=== PATIENT | male | born 1940 | race Caucasian/White ===

== ENCOUNTER 2017-10-21 17:26 | Emergency (ER) | payer OTHER ==
[~2017-10-21] VITALS: Ht 182.9 cm; Wt 141.3 kg
[~2017-10-21 17:26] MED LIST: ALLOPURINOL300 MG PO; AVODART0.5 MG PO; BETIMOL 0.100 DROP/5 BOTH EYES; CINNAMON BARK500 MG PO; COLCHICINE0.6 MG PO; COUMADIN,JANTOVE2 MG PO; FISH OIL 1,0001 EAC7 PO; FLOMAX0.4 MG PO; FUROSEMIDE20 MG PO; GARLIC OIL1000 MG PO; GLIPIZIDE5 MG PO; HYDROCHLOROTHIA50 MG PO; KLOR-CON20 MEQ PO; LISINOPRIL40 MG PO; LOPRESSOR100 M1 PO; ULTRAM50 MG PO; VITAMIN C1000 MG PO; XALATAN2.5 ML BOTH EYES
[2017-10-21 18:37] LABS: BASOPHIL (%) 0.3 % (0-1); BASOPHIL COUNT 0.1 K/uL (0-0.1); EOSINOPHIL (%) 0.3 % (0-5); EOSINOPHIL COUNT 0.1 K/uL (0-0.3); HEMATOCRIT 44.4 % (38.0-50.0); HEMOGLOBIN 14.4 G/DL (12.5-16.6); IMMATURE GRANULOCYTE (%) 0.7 % (0.0-0.7); LYMPHOCYTE (%) 1.9 % (15-42); LYMPHOCYTE COUNT 0.3 K/uL (1.0-2.8); MCH 28.7 PG (29.0-34.0); MCHC 32.4 G/DL (30.0-36.0); MCV 88.4 FL (86-99); MONOCYTE (%) 4.9 % (3-12); MONOCYTE COUNT 0.9 K/uL (0-0.8); NEUTROPHIL (%) 91.9 % (45-76); NEUTROPHIL COUNT 16.4 K/uL (1.8-6.4); PLATELET COUNT 166 K/uL (156-360); RBC DIS.WIDTH-CV 14.7 % (11.8-14.6); RED BLOOD COUNT 5.02 M/uL (4.00-5.50); WHITE BLOOD COUNT 17.8 K/uL (4.1-10.2)
[2017-10-21 18:45] LABS: CHLORIDE 107 mEq/L (99-109); POTASSIUM 3.8 mEq/L (3.7-5.4); SODIUM 142 mEq/L (136-147)
[2017-10-21 18:46] LABS: GLUCOSE 126 mg/dL (70-99)
[2017-10-21 18:50] LABS: CREATININE 1.2 mg/dL (0.6-1.3); GFR ESTIMATE (CALCULATED) > 59 mL/min/ (58.99-99999)
[2017-10-21 18:51] LABS: UREA NITROGEN (BUN) 16 mg/dL (9-23)
[2017-10-21 21:12] LABS: APPEARANCE CLEAR ((CLEAR)); BILIRUBIN NEGATIVE; BLOOD NEGATIVE; COLOR AMBER ((YELLOW)); GLUCOSE (STRIP) NEGATIVE; KETONES NEGATIVE; LEUKOCYTES NEGATIVE; NITRITE NEGATIVE; PROTEIN (STRIP) 30; SPECIFIC GRAVITY 1.023 (1.000-1.030); UCUL ADDED? NO; UROBILINOGEN 0.2 MG/DL (0.2-1.0)
[2017-10-21 21:32] VITALS: BP 171/77
[2017-10-22] MEDS ORDERED: XARELTO20 MG PO (19:49)
[2017-10-22] MEDS ORDERED: LIPITOR40 MG PO (19:50)
[2017-10-22] MEDS ORDERED: K-DUR20 MEQ PO (19:51)
[2017-10-22] MEDS ORDERED: NORVASC5 MG PO (19:58)
[2017-10-22] MEDS ORDERED: PROSCAR5 MG PO (19:59)
== END 2017-10-21 21:34 | disposition home or self-care (01) ==
LOC: EME 17:26
DX: B34.9 Viral infection, unspecified (principal); D72.829 Elevated white blood cell count, unspecified; J81.1 Chronic pulmonary edema; E11.9 Type 2 diabetes mellitus without complications; I10 Essential (primary) hypertension; K21.9 Gastro-esophageal reflux disease without esophagitis; E78.5 Hyperlipidemia, unspecified; M10.9 Gout, unspecified; F17.200 Nicotine dependence, unspecified, uncomplicated; Z79.01 Long term (current) use of anticoagulants; Z86.718 Personal history of other venous thrombosis and embolism; Z87.442 Personal history of urinary calculi; Z90.49 Acquired absence of other specified parts of digestive tract; Z95.828 Presence of other vascular implants and grafts; Z96.652 Presence of left artificial knee joint; Z88.5 Allergy status to narcotic agent
CPT/HCPCS: 71046; 71250; 80048; 81003; 82948; 83605; 85025; 87040; 87077; 87186; 87502; 87801; 99281; 99283

== ENCOUNTER 2017-10-22 17:13 | Inpatient (IN) | payer OTHER ==
[~2017-10-22] VITALS: Ht 182.9 cm; Wt 142.0 kg
[2017-10-22 17:58] LABS: HEMATOCRIT 42.4 % (38.0-50.0); HEMOGLOBIN 13.8 G/DL (12.5-16.6); MCH 28.7 PG (29.0-34.0); MCHC 32.5 G/DL (30.0-36.0); MCV 88.1 FL (86-99); PLATELET COUNT 153 K/uL (156-360); RBC DIS.WIDTH-SD 48.4 % (39-53); RED BLOOD COUNT 4.81 M/uL (4.00-5.50); WHITE BLOOD COUNT 21.5 K/uL (4.1-10.2)
[2017-10-22 18:09] LABS: CHLORIDE 106 mEq/L (99-109); SODIUM 140 mEq/L (136-147)
[2017-10-22 18:11] LABS: GLUCOSE 123 mg/dL (70-99); TOTAL PROTEIN 6.9 g/dL (6.4-8.3)
[2017-10-22 18:13] LABS: TOTAL BILIRUBIN 1.7 mg/dL (0.0-1.0)
[2017-10-22 18:14] LABS: ALKALINE PHOSPHATASE 92 IU/L (3-129)
[2017-10-22 18:15] LABS: CREATININE 1.5 mg/dL (0.6-1.3); GFR ESTIMATE (CALCULATED) 48 mL/min/ (58.99-99999)
[2017-10-22 18:16] LABS: AST (GOT) 31 IU/L (2-34); UREA NITROGEN (BUN) 26 mg/dL (9-23)
[2017-10-22 18:18] LABS: ALT (GPT) 31 IU/L (3-49); LIPASE 7 U/L (1.0-51.0)
[2017-10-22] MEDS ORDERED: XARELTO20 MG PO (19:49)
[2017-10-22] MEDS ORDERED: LIPITOR40 MG PO (19:50)
[2017-10-22] MEDS ORDERED: K-DUR20 MEQ PO (19:51)
[2017-10-22] MEDS ORDERED: NORVASC5 MG PO (19:58)
[2017-10-22] MEDS ORDERED: PROSCAR5 MG PO (19:59)
[2017-10-22 23:14] VITALS: BP 139/71
[2017-10-23 03:59] VITALS: BP 133/69
[2017-10-23 06:16] LABS: HEMATOCRIT 37.2 % (38.0-50.0); HEMOGLOBIN 11.9 G/DL (12.5-16.6); MCV 87.5 FL (86-99); PLATELET COUNT 132 K/uL (156-360); RBC DIS.WIDTH-CV 15.2 % (11.8-14.6); RBC DIS.WIDTH-SD 48.8 % (39-53); RED BLOOD COUNT 4.25 M/uL (4.00-5.50); WHITE BLOOD COUNT 16.5 K/uL (4.1-10.2)
[2017-10-23 06:38] LABS: CHLORIDE 108 MEQ/L (99-109); CREATININE 1.3 MG/DL (0.6-1.3); GFR ESTIMATE (CALCULATED) 57 mL/min/ (58.99-99999); GLUCOSE 131 mg/dL (70-99); POTASSIUM 3.6 MEQ/L (3.7-5.4); SODIUM 139 MEQ/L (136-147); UREA NITROGEN (BUN) 26 mg/dL (9-23)
[2017-10-23 07:26] VITALS: BP 138/63
[2017-10-23 12:13] VITALS: BP 122/67
[2017-10-23 17:07] VITALS: BP 169/85
[2017-10-23 20:20] VITALS: BP 124/69
[2017-10-23 23:55] VITALS: BP 142/65
[2017-10-24 04:30] VITALS: BP 138/76
[2017-10-24 06:49] LABS: HEMATOCRIT 36.6 % (38.0-50.0); HEMOGLOBIN 11.7 G/DL (12.5-16.6); MCH 27.8 PG (29.0-34.0); MCV 86.9 FL (86-99); PLATELET COUNT 136 K/uL (156-360); RBC DIS.WIDTH-SD 47.6 % (39-53); RED BLOOD COUNT 4.21 M/uL (4.00-5.50); WHITE BLOOD COUNT 14.3 K/uL (4.1-10.2)
[2017-10-24 07:12] LABS: C-REACTIVE PROTEIN 174.1 MG/L (0-10); CHLORIDE 107 MEQ/L (99-109); CREATININE 1.3 MG/DL (0.6-1.3); GFR ESTIMATE (CALCULATED) 57 mL/min/ (58.99-99999); GLUCOSE 134 mg/dL (70-99); POTASSIUM 3.5 MEQ/L (3.7-5.4); SODIUM 139 MEQ/L (136-147); UREA NITROGEN (BUN) 28 mg/dL (9-23)
[2017-10-24 07:27] VITALS: BP 137/70
[2017-10-24 07:46] LABS: ERTH.SED.RATE 51 MM/HR (0-20)
[2017-10-24 12:06] VITALS: BP 145/73
[2017-10-24 14:58] VITALS: BP 149/70
[2017-10-24 19:36] VITALS: BP 125/59
[2017-10-24 23:35] VITALS: BP 145/77
[2017-10-25 04:06] VITALS: BP 144/67
[2017-10-25 06:30] LABS: HEMATOCRIT 36.5 % (38.0-50.0); HEMOGLOBIN 11.7 G/DL (12.5-16.6); MCH 27.9 PG (29.0-34.0); MCHC 32.1 G/DL (30.0-36.0); MCV 86.9 FL (86-99); PLATELET COUNT 140 K/uL (156-360); RBC DIS.WIDTH-CV 14.9 % (11.8-14.6); RBC DIS.WIDTH-SD 47.7 % (39-53); WHITE BLOOD COUNT 12.8 K/uL (4.1-10.2)
[2017-10-25 06:58] LABS: CHLORIDE 105 MEQ/L (99-109); CREATININE 1.1 MG/DL (0.6-1.3); GFR ESTIMATE (CALCULATED) > 59 mL/min/ (58.99-99999); POTASSIUM 3.7 MEQ/L (3.7-5.4); SODIUM 142 MEQ/L (136-147); UREA NITROGEN (BUN) 24 mg/dL (9-23)
[2017-10-25 07:11] LABS: GLUCOSE 98 mg/dL (70-99)
[2017-10-25 07:15] VITALS: BP 144/65
[2017-10-25 11:18] VITALS: BP 127/71
[2017-10-25 16:00] VITALS: BP 129/62
[2017-10-26 00:17] VITALS: BP 156/68
[2017-10-26 04:07] VITALS: BP 178/77
[2017-10-26 06:55] VITALS: BP 152/74
[2017-10-26 07:01] LABS: HEMATOCRIT 34.9 % (38.0-50.0); HEMOGLOBIN 11.2 G/DL (12.5-16.6); MCH 27.9 PG (29.0-34.0); MCHC 32.1 G/DL (30.0-36.0); MCV 86.8 FL (86-99); PLATELET COUNT 157 K/uL (156-360); RBC DIS.WIDTH-CV 14.8 % (11.8-14.6); RBC DIS.WIDTH-SD 47.1 % (39-53); RED BLOOD COUNT 4.02 M/uL (4.00-5.50); WHITE BLOOD COUNT 12.4 K/uL (4.1-10.2)
[2017-10-26 07:30] LABS: CHLORIDE 104 MEQ/L (99-109); CREATININE 1.1 MG/DL (0.6-1.3); GFR ESTIMATE (CALCULATED) > 59 mL/min/ (58.99-99999); GLUCOSE 87 mg/dL (70-99); POTASSIUM 3.3 MEQ/L (3.7-5.4); SODIUM 138 MEQ/L (136-147); UREA NITROGEN (BUN) 20 mg/dL (9-23)
[2017-10-26 11:53] VITALS: BP 117/57
[2017-10-26] MEDS ORDERED: CIPRO500 MG PO (12:20)
[2017-10-26 15:00] VITALS: BP 140/74
== END 2017-10-26 19:04 | disposition home health service (06) | DRG 872 ==
LOC: EME 17:13 → EDOF 20:31 → ENRESERV 20:32 → 5EAST 22:09 → ENRESERV 10-23 13:52 → CANRESERV 10-23 13:52 → 5EAST 10-26 19:04
PROVIDERS: Hospitalist; Physician Assistant
DX: A41.52 Sepsis due to Pseudomonas (principal); N17.9 Acute kidney failure, unspecified; L03.116 Cellulitis of left lower limb; E11.65 Type 2 diabetes mellitus with hyperglycemia; I48.2 Chronic atrial fibrillation; E66.01 Morbid (severe) obesity due to excess calories; R65.20 Severe sepsis without septic shock; D69.6 Thrombocytopenia, unspecified; E78.5 Hyperlipidemia, unspecified; M10.9 Gout, unspecified; I10 Essential (primary) hypertension; N40.0 Benign prostatic hyperplasia without lower urinary tract symptoms; E87.6 Hypokalemia; I87.2 Venous insufficiency (chronic) (peripheral); I89.0 Lymphedema, not elsewhere classified; F17.200 Nicotine dependence, unspecified, uncomplicated; K21.9 Gastro-esophageal reflux disease without esophagitis; M19.90 Unspecified osteoarthritis, unspecified site; H40.9 Unspecified glaucoma; Z90.49 Acquired absence of other specified parts of digestive tract; Z96.652 Presence of left artificial knee joint; Z86.718 Personal history of other venous thrombosis and embolism; Z79.01 Long term (current) use of anticoagulants; Z79.84 Long term (current) use of oral hypoglycemic drugs; Z79.899 Other long term (current) drug therapy; Z87.442 Personal history of urinary calculi; Z85.828 Personal history of other malignant neoplasm of skin; Z82.49 Family history of ischemic heart disease and other diseases of the circulatory system
CPT/HCPCS: 71046; 71250; 72131; 73700; 80048; 80053; 81003; 82948; 83605; 83690; 83880; 85025; 85027; 85652; 86140; 87040; 87077; 87186; 87502; 87801; 93306; 93971; 99281; 99283; 99285; G0378; J0692; J2543; J7030; J7050